=== PATIENT | female | born 1960 | race Caucasian/White ===

== ENCOUNTER 2024-12-18 10:28 | Inpatient (IN) | payer MEDICARE, OTHER ==
[~2024-12-18] VITALS: Ht 172.7 cm; Wt 73.9 kg
[2024-12-18] MEDS: MAGNESIUM 2 G PREMIX 50 ML IV ONE (11:14)
[2024-12-18] MEDS: METHYLPREDNISOLONE SOD SUCC 125MG/2ML (ACT-O-VIAL) IV STA (11:14)
[2024-12-18] MEDS: IPRATROPIUM BROMIDE (0.02%) 0.5MG/2.5ML NEB HHN STA (11:44)
[2024-12-18] MEDS: ALBUTEROL (0.083%) 2.5MG/3ML NEB HHN SCH (11:45)
[2024-12-18 11:49] VITALS: PULSE 92; RESP 30; O2SAT 99
[2024-12-18 11:51] LABS: BASOPHILS % 0.3 % (0.0-2.0); EOSINOPHILS % 0.5 % (0.0-5.0); HEMATOCRIT. 42.1 % (36.0-48.0); HEMOGLOBIN. 13.8 g/dL (12.0-16.0); LYMPHOCYTES % 7.6 % (20.0-50.0); MEAN CORPUSCULAR HEMOGLOBIN 31.9 pg (28.0-32.0); MEAN CORPUSCULAR HGB CONC 32.9 g/dL (31.0-37.0); MEAN CORPUSCULAR VOLUME 97.1 fL (81.0-99.0); MEAN PLATELET VOLUME 7.6 fl (7.4-10.4); MONOCYTES % 10.9 % (2.0-8.0); NEUTROPHILS % 80.7 % (40.0-76.0); PLATELET 415 x1000/uL (130-400); RED BLOOD CELL COUNT 4.33 mill/uL (4.2-5.4); RED CELL DISTRIBUTION WIDTH 13.2 % (11.6-14.6)
[2024-12-18 12:01] LABS: PARTIAL THROMBOPLASTIN TIME 25.6 sec (23.4-31.0); PROTHROMBIN TIME 11.2 sec (9.6-11.0)
[2024-12-18] MEDS ORDERED: CEFTRIAXONE 2GM/50ML 50 ML IV ONE (12:30)
[2024-12-18] MEDS ORDERED: AZITHROMYCIN 500MG/250ML 250 ML IV SCH (12:30)
[2024-12-18 13:13] LABS: INFLUENZA TYPE A Presumptive Negative (Pres. Neg.); INFLUENZA TYPE B Presumptive Negative (Pres. Neg.)
[2024-12-18] MEDS: LEVOFLOXACIN 750MG PREMIX 150 ML IV ONE (14:26)
[2024-12-18 15:40] LABS: CALCIUM 9.7 mg/dL (8.7-10.4); CARBON DIOXIDE 27 mEq/L (21-32); CHLORIDE 97 mEq/L (98-107); CREATININE 0.9 mg/dL (0.6-1.0); GLUCOSE 99 mg/dL (70-105); LACTIC ACID 2.8 mmol/L (0.4-2.0); POTASSIUM 3.3 mEq/L (3.5-5.1); SODIUM 138 mEq/L (136-145); TROPONIN I HIGH SENSITIVITY 22 ng/L (3.0-34); UREA NITROGEN BLOOD 11 mg/dL (9-23)
[2024-12-18] MEDS: SODIUM CHLORIDE 0.9% 1,000 ML IV ONE (16:42)
[2024-12-18 18:36] VITALS: BP 126/68; PULSE 90; RESP 18; TEMP 36.8
[2024-12-18] MEDS ORDERED: FAMO-134 PO (18:59)
[2024-12-18] MEDS ORDERED: OXYB-52 MT (18:59)
[2024-12-18] MEDS ORDERED: METH4TAB3 PO (18:59)
[2024-12-18] MEDS ORDERED: BACI1CAP13 MT (18:59)
[2024-12-18] MEDS ORDERED: METO25TA6 PO (18:59)
[2024-12-18] MEDS ORDERED: OLME20TA68 MT (18:59)
[2024-12-18] MEDS ORDERED: CLAR10 PO (18:59)
[2024-12-18] MEDS ORDERED: IPRA42SP BOTHNSTRLS (18:59)
[2024-12-18] MEDS ORDERED: FLUT1BLS INH (18:59)
[2024-12-18] MEDS ORDERED: ALBU90AE IH (18:59)
[2024-12-18] MEDS ORDERED: LYSI500T11 MT (18:59)
[2024-12-18] MEDS ORDERED: FLUT15.844 BOTHNSTRLS (18:59)
[2024-12-18] MEDS ORDERED: ACYC200C31 PO (18:59)
[2024-12-18 20:00] VITALS: BP 136/64; PULSE 86; RESP 18; TEMP 36.9; O2SAT 98
[2024-12-18] MEDS ORDERED: ACETAMINOPHEN 325MG TABLET PO PRN ×2 (20:30)
[2024-12-18] MEDS ORDERED: IPRATROPIUM/ALBUTEROL 0.5-3(2.5)MG/3ML NEB HHN PRN (20:30)
[2024-12-18] MEDS ORDERED: ONDANSETRON HCL 4MG/2ML INJ IV PRN (20:30)
[2024-12-18] MEDS ORDERED: DOCUSATE SODIUM 100MG CAPSULE PO PRN (20:30)
[2024-12-18] MEDS ORDERED: GUAIFENESIN 200MG/10ML SUGAR FREE UDC PO PRN (20:30)
[2024-12-18] MEDS ORDERED: FAMOTIDINE(NEO) 1MG/ML SUSP PO SCH (21:00)
[2024-12-18] MEDS: OXYBUTYNIN CHLORIDE 5MG TABLET PO SCH (21:14)
[2024-12-18] MEDS: ACYCLOVIR 400 MG TABLET PO SCH (21:14)
[2024-12-18] MEDS: FAMOTIDINE 20MG TABLET PO SCH (21:15)
[2024-12-18] MEDS: IPRATROPIUM/ALBUTEROL 0.5-3(2.5)MG/3ML NEB HHN SCH (21:31)
[2024-12-18 21:32] VITALS: PULSE 92; RESP 18; O2SAT 98
[2024-12-18] MEDS: LEVOFLOXACIN 750MG PREMIX 150 ML IV SCH (21:43)
[2024-12-18] MEDS: METHYLPREDNISOLONE SOD SUCC 40MG/ML (ACT-O-VIAL) IV SCH (23:06)
[2024-12-18 23:37] LABS: CLARITY URINE CLEAR (CLEAR); COLOR URINE YELLOW (YELLOW); GLUCOSE URINE NEGATIVE (NEGATIVE); KETONES URINE NEGATIVE (NEGATIVE); LEUKOCYTE ESTERASE URINE NEGATIVE (NEGATIVE); NITRITE URINE NEGATIVE (NEGATIVE); OCCULT BLOOD URINE NEGATIVE (NEGATIVE); PH URINE 7.5 (4.5-8.0); PROTEIN URINE NEGATIVE (NEGATIVE); SPECIFIC GRAVITY URINE 1.006 (1.005-1.030); UROBILINOGEN URINE 0.2 E.U./dL (0.2-1.0)
[2024-12-19] VITALS (11 sets, daily range): BP systolic 128–144; BP diastolic 61–73; PULSE 72–90; RESP 16–18; TEMP 35.9–38.6; O2SAT 94–99
[2024-12-19] MEDS: ALBUTEROL (0.083%) 2.5MG/3ML NEB HHN SCH
[2024-12-19] MEDS: BUDESONIDE 0.5MG/2ML NEB HHN SCH (00:06)
[2024-12-19] MEDS ORDERED: FLUTICASONE/VILANTEROL 200-25 BLST.W.DEV ORI SCH (09:00)
[2024-12-19] MEDS ORDERED: MEDICATION NOT ON FORMULARY EA (Olmesartan Medoxomil 1 TAB) MT SCH (09:00)
[2024-12-19] MEDS: LOSARTAN 100 MG TABLET PO SCH (09:00)
[2024-12-19] MEDS: ENOXAPARIN 40MG/0.4ML SYR SUBCUT SCH (09:05)
[2024-12-19] MEDS: METOPROLOL TARTRATE 25MG TABLET PO SCH (09:06)
[2024-12-19] MEDS: METHYLPREDNISOLONE SOD SUCC 125MG/2ML (ACT-O-VIAL) IV SCH ×2 (13:08→21:12)
[2024-12-19] MEDS ORDERED: BENZONATATE 100MG CAPSULE PO PRN (14:00)
[2024-12-19 14:56] LABS: BG BASE EXCESS -0.5 mmol/L (-2.0-3.0); BG CARBOXYHEMOGLOBIN 0.7 % (0.5-1.5); BG DEOXYHEMOGLOBIN 3.6 % (0.0-5.0); BG FRACTION INSPIRED OXYGEN 21; BG HCO3 ACT 23.4 mmol/L (21.0-28.0); BG METHEMOGLOBIN 0.1 % (0.5-1.5); BG OXYGEN SATURATION 96.4 % (94.0-98.0); BG OXYHEMOGLOBIN 95.6 % (94.0-98.0); BG PCO2 36.1 mmHg (32.0-45.0); BG PO2 80.8 mmHg (83.0-108.0); BG SAMPLE SITE RIGHT BRACHIAL; BG TOTAL HEMOGLOBIN 13.1 g/dL (12.0-16.0); BG VENT MODE ROOM AIR
[2024-12-19] MEDS: MONTELUKAST SODIUM 10MG TABLET PO SCH (18:33)
[2024-12-20] VITALS (12 sets, daily range): BP systolic 124–140; BP diastolic 60–69; PULSE 70–87; RESP 16–20; TEMP 36.6–36.8; O2SAT 97–99
[2024-12-20] MEDS: BENZONATATE 100MG CAPSULE PO SCH (17:41)
[2024-12-21] VITALS (13 sets, daily range): BP systolic 135–161; BP diastolic 70–94; PULSE 65–112; RESP 16–20; TEMP 36.3–36.7; O2SAT 2–98
[2024-12-21] MEDS ORDERED: LOSA100T33 PO (12:24)
[2024-12-21] MEDS ORDERED: IPRA3AMP9 HHN (12:24)
[2024-12-21] MEDS ORDERED: DEXTL PO (12:24)
[2024-12-21] MEDS ORDERED: MONT-46 PO (12:24)
[2024-12-21] MEDS ORDERED: BENZ100C86 PO (12:24)
[2024-12-21] MEDS: METOPROLOL TARTRATE 50MG TABLET PO SCH (18:37)
[2024-12-21] MEDS: METHYLPREDNISOLONE SOD SUCC 125MG/2ML (ACT-O-VIAL) IV SCH (21:08)
[2024-12-22] VITALS (7 sets, daily range): BP systolic 120–159; BP diastolic 78–83; PULSE 62–80; RESP 16–18; TEMP 36.5–36.6; O2SAT 96–100
[2024-12-22] MEDS: CLONIDINE 0.1MG TABLET PO PRN (12:19)
== END 2024-12-22 14:40 | disposition home or self-care (01) | DRG 871 ==
LOC: ER 10:28 → EDBEDREQTM 13:30 → EDBEDREQ 13:30 → 8WST 18:08
PROVIDERS: ADMIT Family Medicine Adult Medicine; ATTEND Family Medicine Adult Medicine
DX: A41.9 Sepsis, unspecified organism (principal); J96.01 Acute respiratory failure with hypoxia; J44.1 Chronic obstructive pulmonary disease with (acute) exacerbation; J45.901 Unspecified asthma with (acute) exacerbation; E87.20 Acidosis, unspecified; Z20.822 Contact with and (suspected) exposure to COVID-19; R65.20 Severe sepsis without septic shock; J20.9 Acute bronchitis, unspecified; E87.6 Hypokalemia; I10 Essential (primary) hypertension; Z88.0 Allergy status to penicillin; Z79.899 Other long term (current) drug therapy; Z88.5 Allergy status to narcotic agent
CPT/HCPCS: 36415; 36600; 71045; 80048; 81003; 82375; 82805; 83605; 83880; 84484; 85025; 87070; 87426; 87804; 93005; 93306; 93970; 94070; 94618; 94640; 94664; 98960; 99285; J0696; J1650; J1956; J2919; J2920; J3475; J7626